=== PATIENT | female | born 1980 | race Caucasian/White ===

== ENCOUNTER 2017-05-28 09:00 | Emergency (ER) | payer MEDICAID ==
[2017-05-28] MEDS ORDERED: NORCO 5/325 PO ONE (11:56)
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
[2017-05-28] MEDS ORDERED: MOTRIN PO ONE ×2 (12:12→12:18)
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
[2017-05-28 13:49] LABS: Bacteria,Urine 1+ /HPF (Negative); Bilirubin,Urine NEG (Negative); Blood,Urine NEG (Negative); Ketones,Urine NEG (Negative); Leukocyte Esterase,Urine NEG (Negative); Mucus,Urine 3+ /HPF; Nitrite,Urine NEG (Negative); Urobilinogen,Urine < 2.0 mg/dL (<2.0)
[2017-05-28 13:58] VITALS: BP 119/83
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
== END 2017-05-28 15:11 | disposition home or self-care (01) ==
LOC: ED 09:00
DX: S00.91XA Abrasion of unspecified part of head, initial encounter (principal); S60.221A Contusion of right hand, initial encounter; F17.200 Nicotine dependence, unspecified, uncomplicated; Y08.89XA Assault by other specified means, initial encounter; Y93.9 Activity, unspecified; Y92.9 Unspecified place or not applicable; Y99.9 Unspecified external cause status
CPT/HCPCS: 70450; 70486; 81001; 81025

== ENCOUNTER 2017-06-17 09:27 | Emergency (ER) | payer OTHER, MEDICAID ==
[2017-06-17 10:19] VITALS: BP 106/70
[2017-06-17] MEDS ORDERED: MOTRIN PO ONE (11:34)
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
== END 2017-06-17 13:03 | disposition home or self-care (01) ==
LOC: ED 09:27
DX: S13.4XXA Sprain of ligaments of cervical spine, initial encounter (principal); F17.200 Nicotine dependence, unspecified, uncomplicated; V49.49XA Driver injured in collision with other motor vehicles in traffic accident, initial encounter; Y93.9 Activity, unspecified; Y92.89 Other specified places as the place of occurrence of the external cause; Y99.8 Other external cause status
CPT/HCPCS: 72125